=== PATIENT | male | born 1990 ===

== ENCOUNTER → 2019-08-12 | Outpatient (REF) | payer OTHER ==
[2019-08-12 12:46] LABS: SEMEN APPEARANCE OPAQUE (OPAQUE); SEMEN VISCOSITY LIQUID (LIQUID); SEMEN VOLUME 1.5 ml (2.0-5.0)
[2019-08-12 12:47] LABS: SPERM CONCENTRATION 26.7 M/ml (>=15.0); WBC CONCENTRATION <=1 M/ml (<=1 M/ml)
== END ==
LOC: M LAB REF 11:35
PROVIDERS: ATTEND Obstetrics & Gynecology Obstetrics
DX: Z31.41 Encounter for fertility testing (principal)